=== PATIENT | female | born 1955 | race Two or more races ===

== ENCOUNTER 2019-03-19 07:46 | Emergency (ER) | payer OTHER, MEDICAID ==
[~2019-03-19] VITALS: Ht 149.9 cm; Wt 90.7 kg
[~2019-03-19 07:46] MED LIST: ACET500T68 PO; AMLO5TAB10 PO; ASPI-630 PO; ATOR10TA60 PO; CARV25TA2 PO; ERYT250T16 PO; FOLI0.8T3 PO; GLUC1KIT IM; HYDR-2761 PO; HYDR-2868 PO; INSU100V13 SQ; LISI-130 PO; LISI30TA4 PO; ONDA4TAB11 PO; POLY2500 PO; SEVE800T9 PO
[2019-03-19 08:50] VITALS: BP 170/74
[2019-03-19 08:52] LABS: BASO # 0.1 x10^3/uL (0.0-0.2); BASO % 1 % (0-3); EOS # 0.1 x10^3/uL (0.0-0.7); EOS % 1 % (0-3); HEMATOCRIT 31.1 % (36.0-47.0); HEMOGLOBIN 10.4 g/dL (12.0-15.5); LYMPH # 1.2 x10^3/uL (1.0-4.8); LYMPH % 13 % (24-48); MEAN CORPUSCULAR HEMOGLOBIN 30 pg (25-35); MEAN CORPUSCULAR HGB CONC 34 g/dL (31-37); MEAN CORPUSCULAR VOLUME 90 fL (79-100); MONO # 0.5 x10^3/uL (0.0-1.1); MONO % 5 % (0-9); NEUT # 7.2 x10^3/uL (1.8-7.7); NEUT % 80 % (31-73); PLATELET COUNT 187 x10^3/uL (140-400); RED BLOOD COUNT 3.46 x10^6/uL (3.50-5.40); RED CELL DISTRIBUTION WIDTH 14.2 % (11.5-14.5); WHITE BLOOD COUNT 9.1 x10^3/uL (4.0-11.0)
[2019-03-19 08:57] LABS: CALCIUM 8.3 mg/dL (8.5-10.1); CREATININE 3.1 mg/dL (0.6-1.0); GFR 15.3; POTASSIUM 3.4 mmol/L (3.5-5.1)
[2019-03-19 09:04] LABS: ALBUMIN 2.9 g/dL (3.4-5.0); ALBUMIN/GLOBULIN RATIO 0.8 (1.0-1.7); TOTAL BILIRUBIN 0.5 mg/dL (0.2-1.0); TOTAL PROTEIN 6.7 g/dL (6.4-8.2)
--- NOTE | 2019-03-19 09:33 | PHYS DOC ---
Past Medical History Past Medical History: Diabetes-Type II, GERD, High Cholesterol, Hypertension, Renal Failure, Other Additional Past Medical Histor: Malnutrition, Cognitive Communication Deficit Past Surgical History: Other Additional Past Surgical Histo: Unknown Surgical history Alcohol Use: None Drug Use: None Adult General Chief Complaint Chief Complaint: HYPOGLYCEMIA HPI HPI Patient is a 63 year old female with history of hypertension, dyslipidemia, diabetes mellitus, chronic renal insufficiency on dialysis, cognitive communication deficit and resident of jail who presents EMS with complaint of hypoglycemia. Patient states she felt dizzy and weak this morning and was not able to eat her breakfast. EMS reported patient had blood sugar of 44 and treated with 25 mL of D50 with improvement of blood sugar to 359. Patient states she feels better at arrival to ER and stated she had the same problem last week. Patient has chronic renal failure on dialysis with next dialysis scheduled for tomorrow. Patient denies chest pain, shortness of breath, nausea vomiting, diarrhea. Review of Systems Review of Systems Constitutional: Denies fever or chills [] Eyes: Denies change in visual acuity, redness, or eye pain [] HENT: Denies nasal congestion or sore throat [] Respiratory: Denies cough or shortness of breath [] Cardiovascular: No additional information not addressed in HPI [] GI: Denies abdominal pain, nausea, vomiting, bloody stools or diarrhea [] : Denies dysuria or hematuria [] Musculoskeletal: Denies back pain or joint pain [] Integument: Denies rash or skin lesions [] Neurologic: Denies headache, focal weakness or sensory changes [] Endocrine: Denies polyuria or polydipsia [] All other systems were reviewed and found to be within normal limits, except as documented in this note. Allergies Allergies Allergies Coded Allergies Type Severity Reaction Last Updated Verified No Known Drug Allergies 03/02/19 No Physical Exam Physical Exam Constitutional: Well nourished, mild distress, non-toxic appearance. [] HENT: Normocephalic, atraumatic. Eyes: PERRLA, EOMI, conjunctiva normal, no discharge. [] Neck: Normal range of motion, no tenderness, supple, no stridor. [] Cardiovascular:Heart rate regular rhythm, no murmur [] Lungs & Thorax: Bilateral breath sounds clear to auscultation [] Abdomen: Bowel sounds normal, soft, no tenderness, no masses, no pulsatile masses. [] Skin: Warm, dry, no erythema, no rash. [] Back: No tenderness, no CVA tenderness. [] Extremities: No tenderness, no cyanosis, no clubbing, ROM intact, no edema. [] Neurologic: Alert and oriented, no focal deficits noted. [] Psychologic: Affect normal, judgement normal, mood normal. [] Current Patient Data Vital Signs Vital Signs Date Time Temp Pulse Resp B/P (MAP) Pulse Ox O2 Delivery O2 Flow Rate FiO2 03/19/19 08:50 170/74 (106) 03/19/19 08:20 60 18 97 Room Air 03/19/19 07:53 97.8 97.8 Lab Values Laboratory Tests Test 03/19/19 08:32 03/19/19 08:40 Glucose (Fingerstick) 165 mg/dL (70-99) H White Blood Count 9.1 x10^3/uL (4.0-11.0) Red Blood Count 3.46 x10^6/uL (3.50-5.40) L Hemoglobin 10.4 g/dL (12.0-15.5) L Hematocrit 31.1 % (36.0-47.0) L Mean Corpuscular Volume 90 fL (79-100) Mean Corpuscular Hemoglobin 30 pg (25-35) Mean Corpuscular Hemoglobin Concent 34 g/dL (31-37) Red Cell Distribution Width 14.2 % (11.5-14.5) Platelet Count 187 x10^3/uL (140-400) Neutrophils (%) (Auto) 80 % (31-73) H Lymphocytes (%) (Auto) 13 % (24-48) L Monocytes (%) (Auto) 5 % (0-9) Eosinophils (%) (Auto) 1 % (0-3) Basophils (%) (Auto) 1 % (0-3) Neutrophils # (Auto) 7.2 x10^3/uL (1.8-7.7) Lymphocytes # (Auto) 1.2 x10^3/uL (1.0-4.8) Monocytes # (Auto) 0.5 x10^3/uL (0.0-1.1) Eosinophils # (Auto) 0.1 x10^3/uL (0.0-0.7) Basophils # (Auto) 0.1 x10^3/uL (0.0-0.2) Sodium Level 134 mmol/L (136-145) L Potassium Level 3.4 mmol/L (3.5-5.1) L Chloride Level 96 mmol/L (98-107) L Carbon Dioxide Level 30 mmol/L (21-32) Anion Gap 8 (6-14) Blood Urea Nitrogen 26 mg/dL (7-20) H Creatinine 3.1 mg/dL (0.6-1.0) H Estimated GFR (Cockcroft-Gault) 15.3 BUN/Creatinine Ratio 8 (6-20) Glucose Level 163 mg/dL (70-99) H Calcium Level 8.3 mg/dL (8.5-10.1) L Total Bilirubin 0.5 mg/dL (0.2-1.0) Aspartate Amino Transferase (AST) 50 U/L (15-37) H Alanine Aminotransferase (ALT) 58 U/L (14-59) Alkaline Phosphatase 193 U/L (46-116) H Total Protein 6.7 g/dL (6.4-8.2) Albumin 2.9 g/dL (3.4-5.0) L Albumin/Globulin Ratio 0.8 (1.0-1.7) L Laboratory Tests 03/19/19 08:40 Laboratory Tests 03/19/19 08:40 EKG EKG [] Radiology/Procedures Radiology/Procedures [] Course & Med Decision Making Course & Med Decision Making Pertinent Labs reviewed. (See chart for details) Evaluation of patient in ER showed 63-year-old female patient with history of diabetes mellitus and failure brought in by EMS because of hypoglycemia at 44 that improved with IV glucose. Patient had blood sugar of 165 at arrival to ER and had breakfast. Patient had unremarkable labs except for chronic elevation of BUN/creatinine and potassium of 3.4. Plan discharge patient to jail and follow up with her primary care physician regarding adjustment the dose of insulin. Dragon Disclaimer Dragon Disclaimer This electronic medical record was generated, in whole or in part, using a voice recognition dictation system. Departure Departure Impression: Primary Impression: Hypoglycemia Additional Impressions: Chronic kidney disease with end stage renal failure on dialysis Hypokalemia Cognitive communication deficit Disposition: HOME, SELF-CARE (To jail at 0931) Condition: IMPROVED Referrals: DINAH REYNA (PCP) Patient Instructions: Hypoglycemia (Low Blood Sugar), Kidney Failure Additional Instructions: Follow-up with your primary care physician in 1-2 days for adjustment in dose of insulin Return to ER if not getting better Problem Qualifiers JOSE LUIS HOBBS MD Mar 19, 2019 09:33
== END 2019-03-19 11:57 | disposition home or self-care (01) ==
LOC: ER 07:46
DX: I12.0 Hypertensive chronic kidney disease with stage 5 chronic kidney disease or end stage renal disease (principal); E11.22 Type 2 diabetes mellitus with diabetic chronic kidney disease; N18.6 End stage renal disease; R41.841 Cognitive communication deficit; E87.6 Hypokalemia; K21.9 Gastro-esophageal reflux disease without esophagitis; E11.649 Type 2 diabetes mellitus with hypoglycemia without coma; E78.00 Pure hypercholesterolemia, unspecified; Z99.2 Dependence on renal dialysis; Z79.4 Long term (current) use of insulin
CPT/HCPCS: 36415; 80053; 82962; 85025; 99284

== ENCOUNTER 2019-04-10 17:48 | Emergency (ER) | payer OTHER, MEDICAID ==
[~2019-04-10] VITALS: Ht 149.9 cm; Wt 90.7 kg
[2019-04-10] MEDS ORDERED: GELATIN SPONGE SIZE 12-7MM SPONGE. ONE ×2 (18:23→18:25)
[2019-04-10] MEDS: GELATIN SPONGE SIZE 100. TP ONE ×3 (18:30→18:39)
--- NOTE | 2019-04-10 18:43 | PHYS DOC ---
Past Medical History Past Medical History: Diabetes-Type II, GERD, High Cholesterol, Hypertension, Renal Failure, Other Additional Past Medical Histor: Malnutrition, Cognitive Communication Deficit Past Surgical History: Other Additional Past Surgical Histo: Unknown Surgical history, LEFT FOOT Alcohol Use: None Drug Use: None Adult General Chief Complaint Chief Complaint: DIALYSIS PROBLEM HPI HPI 63-year-old female presents to the emergency department with complaints of dialysis access bleeding. Patient states her access started bleeding after dialysis today despite efforts at dialysis Center they were unsuccessful and patient was sent to the emergency department for further evaluation. Pressure been applied. Patient denies any chest pain, shortness breath, nausea, vomiting, abdominal pain. Review of Systems Review of Systems Constitutional: Denies fever or chills [] Respiratory: Denies cough or shortness of breath [] Cardiovascular: No additional information not addressed in HPI [] GI: Denies abdominal pain, nausea, vomiting, bloody stools or diarrhea [] Musculoskeletal: Denies back pain or joint pain [] Integument: bleeding from dialysis access Neurologic: Denies headache, focal weakness or sensory changes [] All other systems were reviewed and found to be within normal limits, except as documented in this note. Current Medications Current Medications Current Medications Medications (Trade) Dose Ordered Sig/Tabitha Start Time Stop Time Status Last Admin Dose Admin Gelatin (Gelfoam Size 12-7mm) 2 each 1X ONCE 04/10/19 18:45 04/10/19 18:49 DC 04/10/19 18:30 2 EACH Gelatin (Gelfoam Size 100) 1 each 1X ONCE 04/10/19 18:30 04/10/19 18:31 DC Allergies Allergies Allergies Coded Allergies Type Severity Reaction Last Updated Verified No Known Drug Allergies 03/02/19 No Physical Exam Physical Exam Constitutional: Well developed, well nourished, no acute distress, non-toxic appearance. [] Cardiovascular:Heart rate regular rhythm, no murmur [] Lungs & Thorax: Bilateral breath sounds clear to auscultation [] Abdomen: Bowel sounds normal, soft, no tenderness, no masses, no pulsatile masses. [] Skin: Warm, dry, no erythema, no rash, left upper ext with HD access, bleeding from site, currently with gel foam applied Back: No tenderness, no CVA tenderness. [] Extremities: No tenderness, no edema. [] Neurologic: Alert and oriented X 3, no focal deficits noted. [] Psychologic: Affect normal, judgement normal, mood normal. [] Current Patient Data Vital Signs Vital Signs Date Time Temp Pulse Resp B/P (MAP) Pulse Ox O2 Delivery O2 Flow Rate FiO2 04/10/19 17:53 97.8 86 20 222/94 (136) 98 Room Air 97.8 EKG EKG [] Radiology/Procedures Radiology/Procedures [] Course & Med Decision Making Course & Med Decision Making Pertinent Labs and Imaging studies reviewed. (See chart for details) []63-year-old female presents to the emergency department with complaints of dialysis access bleeding. Patient states her access started bleeding after dialysis today despite efforts at dialysis Center they were unsuccessful and patient was sent to the emergency department for further evaluation. Pressure been applied. Patient denies any chest pain, shortness breath, nausea, vomiting, abdominal pain. Pressure applied per EMS without success Evaluation with continued bleeding, gel foam applied to left upper ext with coban applied Reassessment 1929 - no evidence of bleeding Reassessment 2035 - no evidence of bleeding - coban continued Plan dc home recommend follow up with PCP, HD as scheduled Return precautions Dragon Disclaimer Dragon Disclaimer This electronic medical record was generated, in whole or in part, using a voice recognition dictation system. Departure Departure Impression: Primary Impression: Dialysis AV fistula malfunction Disposition: HOME, SELF-CARE Condition: IMPROVED Referrals: DINAH REYNA (PCP) Patient Instructions: Dialysis (AV) Shunt, Malfunction Additional Instructions: Recommend follow up with PCP 3 - 5 days Return to the ER with worsening symptoms, intractable pain, fever, altered mental status Tylenol/Motrin as needed for pain Return to the ER with bleeding of fistula Keep coban wrapping on - reassessment of arm frequently at home Problem Qualifiers Primary Impression: Dialysis AV fistula malfunction Encounter type: initial encounter Qualified Codes: T82.590A - Other mechanical complication of surgically created arteriovenous fistula, initial encounter KENNETH MADERA MD Apr 10, 2019 18:43
[2019-04-10] MEDS ORDERED: GELATIN SPONGE SIZE 12-7MM SPONGE. TP ONE (18:45)
[2019-04-10 20:36] VITALS: BP 193/81
== END 2019-04-10 21:20 | disposition home or self-care (01) ==
LOC: ER 17:48
DX: T82.590A Other mechanical complication of surgically created arteriovenous fistula, initial encounter (principal); I12.9 Hypertensive chronic kidney disease with stage 1 through stage 4 chronic kidney disease, or unspecified chronic kidney disease; E11.22 Type 2 diabetes mellitus with diabetic chronic kidney disease; N18.9 Chronic kidney disease, unspecified; E78.00 Pure hypercholesterolemia, unspecified; K21.9 Gastro-esophageal reflux disease without esophagitis; R41.841 Cognitive communication deficit; Y84.1 Kidney dialysis as the cause of abnormal reaction of the patient, or of later complication, without mention of misadventure at the time of the procedure; Y92.89 Other specified places as the place of occurrence of the external cause
CPT/HCPCS: 99284